=== PATIENT | male | born 1995 ===

== ENCOUNTER 2021-12-01 15:27 | Emergency (ER) | payer SELFPAY ==
[2021-12-01] MEDS ORDERED: KETOROLAC 10 MG TAB PO ONE (17:57)
[2021-12-01] MEDS ORDERED: TETANUS,DIPH,PERTUSS(ACELL) VACCINE 0.5 ML SYRINGE IM ONE (17:57)
[2021-12-01 18:55] VITALS: BP 124/75
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
== END 2021-12-01 19:48 | disposition home or self-care (01) ==
LOC: ED 15:27
DX: S01.81XA Laceration without foreign body of other part of head, initial encounter (principal); Z72.89 Other problems related to lifestyle; W22.8XXA Striking against or struck by other objects, initial encounter; Y93.89 Activity, other specified; Y92.89 Other specified places as the place of occurrence of the external cause; Y99.8 Other external cause status
CPT/HCPCS: 90471; 90715; 99282